=== PATIENT | male | born 1950 | race Caucasian/White ===

== ENCOUNTER 2017-02-16 07:53 | Emergency (ER) | payer OTHER ==
[~2017-02-16] VITALS: Ht 188 cm; Wt 100.0 kg
[~2017-02-16 07:53] MED LIST: AMIODARONE HCL 150 MG/3 ML VIAL IV ONE; ATROPINE SULFATE 1 MG/10 ML SYRINGE IV ONE; EPINEPHrine HCL (1:10,000) 1 MG/10 ML SYRINGE IV ONE; MAGNESIUM SULFATE 40 MEQ/10 ML VIAL IV ONE
[2017-02-16] MEDS ORDERED: EPINEPHrine 2 MG/D5W 250 ML IV ONE ×2 (08:15)
--- NOTE | 2017-02-16 09:22 | PD ---
HPI Chief Complaint: Cardiac arrest Time Seen by Provider: 08:07 Travel History International Travel<30 days: No Contact w/Intl Traveler<30days: No History of Present Illness HPI 66yo M with PMH of CAD s/p CABG and SVT s/p ablation presents to the ED in cardiac arrest. Pt was found by to be unresponsive this morning at 6 something and when [facility] got there, pt was in asystole. ACLS was started at 7: 11am and pt was given epi x4, 100mg bicarb, 2mg of narcan. Combitube was place in field. Pt was in PEA when he arrived to the ED. ET tube was placed in the ED. Pt was given 3 epi, 1 calcium gluconate and had ROSC at 7:58am. Pt was placed on epinephrine drip and labs were ordered. Pt again lose pulses at 8: 14am and ACLS started again. Pt given total of 3 epinephrine and was defibrillated 4 times because he had Vfib. Pt was given amiodarone 300mg and 100mg IV. Time of 8:36am. PFSH Social History Tobacco Use: No (unknown) Allergies-Medications (Allergen,Severity, Reaction): Coded Allergies: UNOBTAINABLE (Unverified , 02/16/17) Review of Systems ROS Limitations: Unresponsive Physical Exam Narrative GENERAL: 66yo M unresponsive. SKIN: Focused skin assessment warm/dry. HEAD: Atraumatic. Normocephalic. EYES: Pupils fixed and dilated. ENT: No nasal bleeding or discharge. Mucous membranes pink and moist. NECK: Trachea midline. No JVD. CARDIOVASCULAR: PEA arrest. RESPIRATORY: Intubated in the ED with equal bilateral breath sounds. GASTROINTESTINAL: Abdomen soft, distended. +Umbilical hernia. MUSCULOSKELETAL: No obvious deformities. No clubbing. No cyanosis. No edema. NEUROLOGICAL: Unresponsive. Pupils fixed and dilated with no corneal reflex. Data Data Last Documented VS Vital Signs Date Time Temp Pulse Resp B/P Pulse Ox O2 Delivery O2 Flow Rate FiO2 02/16/17 07:49 15.00 100 Orders Epinephrine (1:1000) Inj (Adrenalin (1:1 (02/16/17 08:15) Urinary Catheter Insert/Apply (02/16/17 08:07) Electrocardiogram (02/16/17 07:56) Amiodarone Inj (Cordarone Inj) (02/16/17 05:00) Atropine Inj (Atropine Inj) (02/16/17 05:00) Epinephrine (1:10,000) Inj (Epinephrine (02/16/17 05:00) Magnesium Sulfate Inj (Magnesium Sulfate (02/16/17 05:00) MDM Medical Decision Making Medical Screen Exam Complete: Yes Emergency Medical Condition: Yes Interpretation(s) EKG: Paced rhythm. LAD. TWI V5-V6. Differential Diagnosis Cardiac arrest secondary to massive RI vs. PE vs electrolyte abnormality. Narrative Course 66yo M with cardiac history here with cardiac arrest. Please see HPI for full details. I spoke to pt's afterwards and she informed me that he has not been feeling well yesterday but did not want to come to the ED. Answered all her questions. Charge nurse will call ME and PMD for certificate. Procedures Procedure Narrative The patient was put in optimal position for the procedure. The patient was intubated with a 8.0 cuffed endotracheal tube using CMAC. Tube placement was confirmed by visualization of the tube and balloon passing through the cords, capnometry. Breath sounds were equal and well aerated bilaterally postintubation. No breath sounds over stomach. Patient was unresponsive and RSI was not used. Diagnosis Primary Impression: Cardiac arrest Joyce Balderas DO February 16, 2017 09:22
--- NOTE | 2017-02-17 15:13 | EKG ---
Date Performed: 02/16/2017 Time Performed: 07:56:54 PTAGE: 66 years EKG: Demand ventricular pacing, unclear if there is a [place] first degree AV block or atrial pac ing present. T wave changes are likely quote unquote memory T waves. A pacemaker interrogation would be useful to determine underlying rhythm. Abnormal ECG NO PREVIOUS TRACING DOCTOR: Bradford Moon Interpretating Date/Time 02/17/2017 15:12:38
== END 2017-02-16 10:15 | disposition expired ==
LOC: PHED 07:53
DX: I46.9 Cardiac arrest, cause unspecified (principal)
CPT/HCPCS: 31500; 92950; 93005; 99285; J0171; J0282; J0461; J3475; J7060